=== PATIENT | female | born 1965 | race Caucasian/White ===

== ENCOUNTER 2021-09-25 00:24 | Day surgery (SDC) | payer BC, SELFPAY ==
[2021-09-19 10:52] VITALS: BMI 38.0
--- NOTE | 2021-09-19 11:04 | PC.NURSE ---
Report to the Outpatient Waiting Room, entrance under the green pavilion located off [facility], at time 0630 on date 09/25/21. OR Time: 0830. - You and your visitor will be asked a series of questions to screen for COVID 19 for your protection. - Only one visitor is allowed at this time. - The patient visitor is requested to leave or wait in car when not with patient. - A mask is required within the hospital. Patients may have clear liquids (water, carbonated beverages, clear teas, apple juice) until 3 hours prior to surgery with a maximum of 20 ounces. - No food from midnight until time of surgery Take the following medications with a SIP of water the morning of surgery: BUPROPION, OXYCODONE (IF NEEDED) Medications to discontinue per physician: VITAMINS Date to take last dose: 09/21/21 Please no make-up, nail macedonian, hairspray, perfume, deodorant, or body powder the day of surgery. No jewelry (including any body piercings) or valuables the day of surgery, leave them at home. Please take a shower or bath the night before, or the morning of, surgery with an antibacterial soap. Wear comfortable, loose fitting clothing. - Jewelry must be removed prior to entering the operating room. Rings and piercings that are not removed may be cut off. - The hospital will not accept responsibility for valuables. - Please leave all valuables, including medications, at home the day of surgery. If you are going home after surgery, a licensed truck driver supervisor must drive you home. - NO public transportation without another adult. - We recommend that an adult stay with you for 24 hours following discharge. - We also recommend that you do not drive, make important decision, drink alcoholic beverages, or take any drugs that were not prescribed by your health care provider for at least 24 hours after your discharge time. Follow any additional instructions given to you from your surgeon. If you or anyone in your household have experienced Covid symptoms in the past week, please notify your surgeon or the nurse liaison at the phone number below for possible testing. Telephone instructions given to PT - BISI MATA and asked if any additional questions and then verbalized understanding. Patient advised to call surgeon office or pre surgery nurse liaison [phone] if any additional questions.
[2021-09-25 06:52] VITALS: BP 108/80; PULSE 69; RESP 16; TEMP 36.3; O2SAT 97
[2021-09-25] MEDS: LACTATED RINGERS 1,000 ML 30 ML IV CONT (07:13)
--- NOTE | 2021-09-25 07:26 | PM.IMHP ---
H&P: HPI History of Present Illness Date/Time: 09/25/21 07:26 Chief Complaint: lupus Narrative: Pt is a 56 y/o F presenting for VAD removal. Pt has had multiple ports in R chest over the years for treatment of autoimmune dz. Pt reports recently not getting further infusion type treatments and would like VAD removed. Review of Systems Review of Systems: All systems reviewed & are unremarkable except as noted in HPI and below PMFSH Social History Social History Smoking status: Never smoker Alcohol intake: never Substance use: never Substance use type: does not use Living arrangements: with family Spiritual care concerns: No Meds Home Medications and Allergies Home Medications Medication Instructions Recorded Confirmed Type bupropion HCl 150 mg 24 hr tablet, 450 mg PO QAM 09/19/21 09/19/21 History extended release carisoprodol 350 mg tablet 350 mg PO TID PRN Pain 09/19/21 09/19/21 History hydroxychloroquine 200 mg tablet 400 mg PO DAILY 09/19/21 09/19/21 History (Plaquenil) multivitamin 1 tablet PO DAILY 09/19/21 09/19/21 History oxycodone 10 mg tablet 10 mg PO Q8H PRN Pain 09/19/21 09/19/21 History rimegepant 75 mg disintegrating 75 mg PO EVERY OTHER DAY 09/19/21 09/19/21 History tablet (Nurtec ODT) Allergies Allergy/AdvReac Type Severity Reaction Status Date / Time ciprofloxacin [From Cipro] Allergy Rash Verified 09/19/21 10:48 chlorhexidine AdvReac Redness of Verified 09/19/21 10:48 Skin Exam Const: General: cooperative, comfortable, no acute distress and anxious Neck: Neck: normal visual inspection, full ROM and no lymphadenopathy Chest: Other: R sided VAD - C/D/I Resp: Effort & Inspection: normal respiratory effort Auscultation: clear to auscultation bilaterally Cardio: Rate: regular rate Rhythm: regular rhythm GI: Inspection: normal to inspection Assessment and Plan Assessment and plan (1) Lupus: Code(s): M32.9 - Systemic lupus erythematosus, unspecified Status: Acute Assessment and Plan: VAD no longer being used for treatment, will setup for removal in OR
--- NOTE | 2021-09-25 07:29 | WPDHPUPDATE1 ---
History and Physical Update Update Date/Time: 09/25/21 07:29 History and Physical has been reviewed, including an updated exam of the patient. There are NO changes in the patient's condition. Risks, benefits, and alternatives have been discussed and questions answered. Patient agrees to proceed with procedure.
--- NOTE | 2021-09-25 08:00 | WPDANESEPPF ---
Anes - Initial Pre Proc Eval Procedure: Operation Date: 09/25/21 08:30 Proposed Procedures p Removal [place] Cath - January Donohue MD <Jesus Pappas DO - Last Filed: 09/25/21 08:04> Date/Time: 09/25/21 08:00 <Jesus Pappas DO - Last Filed: 09/25/21 08:04> Surgeon: January Donohue MD <Jesus Pappas DO - Last Filed: 09/25/21 08:04> Pre Op Diagnosis: lupus <Jesus Pappas DO - Last Filed: 09/25/21 08:04> Patient Data Age: 56 Gender: F Height: 1.52 m Weight: 89.6 kg <Jesus Pappas DO - Last Filed: 09/25/21 08:04> Last Vital Signs Temp 36.3 C L 09/25/21 06:52 Pulse 69 09/25/21 06:52 Resp 16 09/25/21 06:52 BP 108/80 09/25/21 06:52 Pulse Ox 97 09/25/21 06:52 O2 Del Method Room Air 09/25/21 06:52 <Jesus Pappas DO - Last Filed: 09/25/21 08:04> Allergies Allergy/AdvReac Type Severity Reaction Status Date / Time ciprofloxacin [From Cipro] Allergy Rash Verified 09/25/21 07:36 chlorhexidine AdvReac Redness of Verified 09/25/21 07:36 Skin <Jesus Pappas DO - Last Filed: 09/25/21 08:04> Home Medications Medication Instructions Recorded Confirmed Type bupropion HCl 150 mg 24 hr tablet, 450 mg PO QAM 09/19/21 09/25/21 History extended release carisoprodol 350 mg tablet 350 mg PO TID PRN Pain 09/19/21 09/25/21 History hydroxychloroquine 200 mg tablet 400 mg PO DAILY 09/19/21 09/25/21 History (Plaquenil) multivitamin 1 tablet PO DAILY 09/19/21 09/25/21 History oxycodone 10 mg tablet 10 mg PO Q8H PRN Pain 09/19/21 09/25/21 History rimegepant 75 mg disintegrating 75 mg PO EVERY OTHER DAY 09/19/21 09/25/21 History tablet (Nurtec ODT) <Jesus Pappas DO - Last Filed: 09/25/21 08:04> Patient hx anesthesia problems: none <Tae Holt MD - Last Filed: 09/25/21 08:11> Family hx anesthesia problems: none <Tae Holt MD - Last Filed: 09/25/21 08:11> Results Review: All pre-operative results and documents have been reviewed as part of the pre-operative evaluation. <Jesus Pappas DO - Last Filed: 09/25/21 08:04> [facility] Past Medical History Medical History: Medical History (Updated 09/25/21 @ 08:03 by Jesus Pappas DO) Anxiety Chronic, continuous use of opioids Depression Sjogrens syndrome SLE (systemic lupus erythematosus) <Jesus Pappas DO - Last Filed: 09/25/21 08:04> Surgical History Surgical History: Surgical History (Updated 09/25/21 @ 08:03 by Jesus Pappas DO) History of appendectomy History of cholecystectomy History of hysterectomy <Jesus Pappas DO - Last Filed: 09/25/21 08:04> Social History Social History: Social History Smoking status: Never smoker Alcohol intake: never Substance use: never Substance use type: does not use Living arrangements: with family Spiritual care concerns: No <Jesus Pappas DO - Last Filed: 09/25/21 08:04> Anes - Eval Final PreProcedure Day of Procedure 09/25/21 08:00 <Jesus Pappas DO - Last Filed: 09/25/21 08:04> Patient weight: obese <Jesus Pappas DO - Last Filed: 09/25/21 08:04> Heart: regular rate and rhythm <Jesus Pappas DO - Last Filed: 09/25/21 08:04> Lungs: clear to auscultation <Jesus Pappas DO - Last Filed: 09/25/21 08:04> Airway: Mallampati scale class II <Jesus Pappas DO - Last Filed: 09/25/21 08:04> Neurological: alert and oriented <Jesus Pappas DO - Last Filed: 09/25/21 08:04> Last oral intake: >/= 8 hours <Jesus Pappas DO - Last Filed: 09/25/21 08:04> ASA classification: III <Jesus Pappas DO - Last Filed: 09/25/21 08:04> Emergent: no <Jesus Pappas DO - Last Filed: 09/25/21 08
[2021-09-25] MEDS: ceFAZolin 2 GM/D5W 50 ML 2 GM/50 ML BAG IVPB (08:18)
[2021-09-25] MEDS: BUPIVACAINE/EPINEPHRINE 0.25% 50 ML VIAL INFILTRATE (08:33)
--- NOTE | 2021-09-25 08:47 | P.OP_ITS ---
Procedure Note - Detailed Date of Procedure 09/25/21 Pre-op Diagnosis lupus Post-op Diagnosis Same Procedure Performed removal R chest VAD Surgeon January Donohue MD Anesthesia MAC and Local Indications 56 y/o F no longer needing infusion treatment for autoimmune disease. Pt had R sided VAD placed about a year ago. Findings R SCV VAD Description of Procedure The patient was taken to the operating room and placed in the supine position. The patient was then prepped and draped in the normal sterile fashion. A time- out was then done to verify the patient's identity, as well as the procedure being performed. I began by localizing the area of the previously placed port in the right chest. After the area was adequately anesthetized, I made an incision through the previous incision to gain access to the port in the subcutaneous tissue. I was then able to identify the port and using dissection with the Bovie cautery, I was able to free the reservoir from the subcutaneous pocket. The reservoir was being held in by 2 sutures and these were subsequently cut. I was then able to remove the reservoir from the pocket. I then removed the catheter from the right subclavian vein in full. I then held pressure at the level the right subclavian vein for approximately 5 minutes. Hemostasis was noted and I irrigated the pocket. I then closed the subcutaneous tissue with 3-0 Vicryl suture. The skin was closed with 4-0 Monocryl subcuticular suture. Dermabond was placed on the wound. The patient tolerated the procedure well and was alert and awake in the operating room postoperative. The patient will be sent to the recovery room in stable condition. Estimated Blood Loss 5 Drains No Packing No Pathology None sent Complications No immediate complications Condition Stable Disposition PACU [facility] Billing Surgery - Charge Forward: Surgery Billing
[2021-09-25 08:50] VITALS: BP 115/67; PULSE 64; RESP 16
[2021-09-25 09:15] VITALS: BP 111/66; PULSE 66; RESP 12
[2021-09-25 09:45] VITALS: BP 113/93; PULSE 66; RESP 16
== END 2021-09-25 10:05 | disposition home or self-care (01) ==
PROVIDERS: PCP Internal Medicine; Visit Provider Surgery
PROC: (CPT 36589; principal; 2021-09-25 08:30)
DX: Z45.2 Encounter for adjustment and management of vascular access device (principal); M32.9 Systemic lupus erythematosus, unspecified; M35.00 Sjogren syndrome, unspecified; F41.9 Anxiety disorder, unspecified; F32.A Depression, unspecified; Z79.891 Long term (current) use of opiate analgesic; E66.9 Obesity, unspecified; Z68.38 Body mass index [BMI] 38.0-38.9, adult
CPT/HCPCS: 36590; J0690; J1100; J2250; J2405; J2704; J3010; J7120

== ENCOUNTER 2022-04-02 14:27 | Outpatient (CLI) | payer BC, SELFPAY ==
--- NOTE | ~2022-04-02 | CT_ITS ---
EXAMINATION: CT abdomen pelvis wo con DATE: 04/02/2022 15:06 INDICATION: Abdominal pain and tenderness, possible incisional hernia TECHNIQUE: Computed tomography (CT) of the abdomen and pelvis was performed without intravenous contr ast. The dose-length product (DLP) was 1126.73 mGy-cm. Automated exposure control and iterative recon struction technique were employed. COMPARISON: None FINDINGS: Minimal dependent atelectasis is present in the lung bases. The heart size is normal. The g allbladder is surgically absent. There is mild enlargement of the common bile duct and central intrah epatic ducts which is likely due to post cholecystectomy state. The liver, spleen, pancreas, and adre nal glands are normal. There is a 1.3 cm soft tissue attenuation lesion of the right mid kidney. The left kidney is unremarkable. No pathologically enlarged abdominal or pelvic lymph nodes are identifie d. No free intraperitoneal gas or evidence of bowel obstruction. There is a surgical anastomosis of t he rectosigmoid colon. A moderate volume of colonic stool is present. There is a periumbilical hernia containing a short segment of nonobstructed small bowel. There is mild lumbar spondylosis. IMPRESSION: 1. Periumbilical hernia containing a short segment of nonobstructed small bowel. 2. Indeterminate soft tissue attenuation lesion of the right mid kidney. Further evaluation by MRI or CT without and with contrast is recommended. Reviewed, dictated and finalized at location B. [facility] IMPRESSION: 1. Periumbilical hernia containing a short segment of nonobstructed small bowel . 2. Indeterminate soft tissue attenuation lesion of the right mid kidney. Furthe r evaluation by MRI or CT without and with contrast is recommended.
== END 2022-04-02 14:28 | disposition home or self-care (01) ==
PROVIDERS: PCP Internal Medicine; Visit Provider Surgery
DX: K43.2 Incisional hernia without obstruction or gangrene (principal); K42.9 Umbilical hernia without obstruction or gangrene
CPT/HCPCS: 74176

== ENCOUNTER 2022-04-12 14:02 | Outpatient (CLI) | payer BC, SELFPAY ==
--- NOTE | ~2022-04-12 | CT_ITS ---
EXAMINATION: CT abdomen pelvis w con DATE: 04/12/2022 14:33 INDICATION: Right lower quadrant abdominal pain. Right groin pain. TECHNIQUE: Computed tomography (CT) of the abdomen and pelvis was performed with 100 mL Omnipaque 350 intravenous contrast. Automated exposure control and iterative reconstruction technique were employe d. The dose-length product was 1119.51 mGy-cm. COMPARISON: CT abdomen and pelvis 04/02/2022 FINDINGS: The visualized portions of the lung bases are clear without pneumonia or pleural effusion. The heart size is normal. No pericardial effusion. There are changes of cholecystectomy. The spleen, pancreas, adrenal glands, and left kidney are normal. There is a 14 mm hemorrhagic cyst in right kidn ey. There is an anastomosis in the sigmoid colon. There is a periumbilical ventral hernia containing a loop of nonobstructed small bowel. There are no dilated loops of bowel. The appendix is not visuali zed. There are no pathologically enlarged lymph nodes. There is no free intraperitoneal fluid. There is moderate lumbar spondylosis. IMPRESSION: 1. Periumbilical ventral hernia containing a loop of nonobstructed small bowel. Reviewed, dictated and finalized at location A. R REPAIRER
== END 2022-04-12 14:03 | disposition home or self-care (01) ==
PROVIDERS: PCP Internal Medicine; Visit Provider Surgery
DX: R10.31 Right lower quadrant pain (principal); K43.9 Ventral hernia without obstruction or gangrene
CPT/HCPCS: 74177; Q9967

== ENCOUNTER 2022-04-23 11:24 | Outpatient (CLI) | payer BC, SELFPAY | END 2022-04-23 11:25 | disposition home or self-care (01) | LOC: ANHSURGERY 11:28 | PROVIDERS: PCP Internal Medicine; Visit Provider Surgery | DX: K43.2 Incisional hernia without obstruction or gangrene (principal); Z01.818 Encounter for other preprocedural examination | CPT/HCPCS: 36415; 86850; 86900; 86901 ==

== ENCOUNTER 2022-04-28 15:53 | Observation (INO) | payer BC, SELFPAY ==
--- NOTE | 2022-04-19 14:32 | PC.NURSE ---
Report to the Outpatient Waiting Room, entrance under the green pavilion located off [facility], at time 0830 on date _04/27/22. Planned Procedure Time: _1030_. Time changes happen often and if your time is changed the preop area will call you the afternoon before. - You and your visitor will be asked to self-screen and do not enter if you have any COVID symptoms. - Only one visitor is requested with a max of two and NO children visitors are allowed at this time. - The patient visitor may be requested to leave or wait in car when not with patient due to distancing restrictions. - A mask is optional within the hospital at this time. Patients may have clear liquids (water, carbonated beverages, clear teas, apple juice) until 3 hours prior to surgery with a maximum of 20 ounces. - No food from midnight until time of surgery - Infants may have breast milk until 4 hours before surgery, infant formula 6 hours prior to surgery. - Children will be allowed to drink immediately following surgery. If applicable, please bring a bottle or sippy cup to assist with drinking. Juice, water, soda, and popsicles are readily available. For infants on formula, please bring formula the day of surgery. Pacifiers are allowed. Take the following medications with a SIP of water the morning of surgery: BUPROPION, CARISOPRODOL AND OXYCODONE IF NEEDED DO NOT STOP ANY OF YOUR OTHER PRESCRIPTION MEDICATIONS PRIOR TO SURGERY ?EXCEPT THE FOLLOWING Medications to discontinue per physician ___VITAMINS AND SUPPLIMENTS Date to take last dose___04/24/22 Please no make-up, nail ukrainian, hairspray, perfume, deodorant, or body powder the day of surgery. No jewelry (including any body piercings) or valuables the day of surgery, leave them at home. Please take a shower or bath the night before, or the morning of, surgery with an antibacterial soap. Wear comfortable, loose fitting clothing. Children are encouraged to wear pajamas. - Jewelry must be removed prior to entering the operating room. Rings and piercings that are not removed may be cut off. - The hospital will not accept responsibility for valuables. - Please leave all valuables, including medications, at home the day of surgery. If you are going home after surgery, a licensed after school driver must drive you home. - NO public transportation without another adult if you receive anesthesia. - We recommend that an adult stay with you for 24 hours following discharge. - We also recommend that you do not drive, make important decision, drink alcoholic beverages, or take any drugs that were not prescribed by your health care provider for at least 24 hours after your discharge time. For Pediatric surgeries, we recommend two adults accompany the child home. Follow any additional instructions given to you from your surgeon. If you or anyone in your household have experienced Covid symptoms in the past week, please notify your surgeon or the nurse liaison at the phone number below for possible testing. Telephone instructions given to _PATIENT and asked if any additional questions and then verbalized understanding. Patient advised to call surgeon office or pre surgery nurse liaison [phone] if any additional questions.
[2022-04-27] VITALS (17 sets, daily range): BP systolic 84–147; BP diastolic 54–93; PULSE 55–80; RESP 12–16; TEMP 36.3–36.6; O2SAT 93–99
[2022-04-27] MEDS: LACTATED RINGERS 1,000 ML 30 ML IV CONT ×3 (06:31→11:32)
[2022-04-27] MEDS: KETOROLAC 15 MG/ML VIAL (*BKC) IV PUSH (06:31)
[2022-04-27] MEDS: ACETAMINOPHEN 500 MG TABLET 1000 MG PO (06:31)
--- NOTE | 2022-04-27 07:14 | WPDANESEPPF ---
Anes - Initial Pre Proc Eval Procedure: Operation Date: 04/27/22 07:30 Proposed Procedures p Robotic Assisted Laparoscopic Incisional Hernia Repair with Mesh - January Donohue MD Date/Time: 04/27/22 07:14 Surgeon: January Donohue MD Pre Op Diagnosis: Incisional Hernia Patient Data Age: 56 Gender: F Height: Weight: 92 kg Last Vital Signs Temp 97.3 F L 04/27/22 06:25 Pulse 75 04/27/22 06:25 Resp 16 04/27/22 06:25 BP 125/77 04/27/22 06:25 Pulse Ox 99 04/27/22 06:25 O2 Del Method Room Air 04/27/22 06:25 Allergies Allergy/AdvReac Type Severity Reaction Status Date / Time ciprofloxacin [From Cipro] Allergy Rash Verified 04/27/22 06:43 chlorhexidine AdvReac Redness of Verified 04/27/22 06:43 Skin Home Medications Medication Instructions Recorded Confirmed Type bupropion HCl 150 mg 24 hr tablet, 450 mg PO QAM 09/19/21 04/19/22 History extended release carisoprodol 350 mg tablet 350 mg PO TID PRN Pain 09/19/21 04/19/22 History hydroxychloroquine 200 mg tablet 400 mg PO DAILY 09/19/21 04/19/22 History (Plaquenil) multivitamin 1 tablet PO DAILY 09/19/21 04/19/22 History oxycodone 10 mg tablet 10 mg PO Q8H PRN Pain 09/19/21 04/19/22 History rimegepant 75 mg disintegrating 75 mg PO EVERY OTHER DAY 09/19/21 04/19/22 History tablet (Nurtec ODT) zolpidem 10 mg tablet 10 mg PO QHS PRN SLEEPLESSNESS 03/28/22 04/19/22 History B Complex-Vitamin B12 1 tab-cap PO DAILY 04/19/22 04/19/22 History Vital Protien/ Collegan Suppliment 1 PO DAILY 04/19/22 History cholecalciferol (vitamin D3) 25 25 mcg PO DAILY 04/19/22 04/19/22 History mcg (1,000 unit) tablet (Vitamin D3) Patient hx anesthesia problems: none Family hx anesthesia problems: none Results Review: All pre-operative results and documents have been reviewed as part of the pre-operative evaluation. PMFSH Past Medical History Medical History (Updated 03/28/22 @ 10:47 by Clarissa Shaffer [facility]) Anxiety Chronic, continuous use of opioids Depression History of cervical cancer Sjogrens syndrome SLE (systemic lupus erythematosus) Surgical History Surgical History (Updated 03/28/22 @ 10:03 by Avril Pedraza) History of appendectomy History of cholecystectomy History of hysterectomy History of removal of Port-a-Cath S/P colon resection S/P hernia repair S/P oophorectomy S/P rotator cuff repair Family History Family History Father Malignant neoplasm of prostate Mother CHF (congestive heart failure) Multiple myeloma Emphysema lung Sibling CHF (congestive heart failure) Aortic aneurysm Unknown Diabetes mellitus Heart disease Hypertension Kidney disease Cancer Social History Social History Smoking status: Never smoker Alcohol intake: former Substance use: never Substance use type: does not use Living arrangements: with family Spiritual care concerns: No Anes - Eval Final PreProcedure Day of Procedure 04/27/22 07:14 Patient weight: obese Heart: regular rate and rhythm Lungs: clear to auscultation Airway: Mallampati scale class III Neurological: alert and oriented Last oral intake: >/= 8 hours ASA classification: III Emergent: no Anesthetic plan: proceed Anesthesia type and monitoring: general ETT and standard monitoring Results Review: All pre-operative results and documents have been reviewed as part of the pre-operative evaluation. Informed Consent: The patient's anesthetic plan and its attendant risks and benefits were discussed with the patient/family/POA. Questions were solicited and answers provided to the satisfaction of the patient/family/POA.
--- NOTE | 2022-04-27 07:17 | WPDHPUPDATE1 ---
History and Physical Update Update Date/Time: 04/27/22 07:17 History and Physical has been reviewed, including an updated exam of the patient. There are NO changes in the patient's condition. Risks, benefits, and alternatives have been discussed and questions answered. Patient agrees to proceed with procedure. will setup for robotic assisted repair of recurrent incisional hernia
[2022-04-27] MEDS: ceFAZolin 2 GM/D5W 50 ML 2 GM/50 ML BAG IVPB (07:24)
[2022-04-27] MEDS: BUPIVACAINE/EPINEPHRINE 0.25% 50 ML VIAL 30 ML INFILTRATE (07:57)
--- NOTE | 2022-04-27 10:39 | W.PM.PROC2 ---
Procedure Note - Detailed Date of Procedure 04/27/22 Pre-op Diagnosis recurrent, incarcerated incisional hernia Post-op Diagnosis Same Procedure Performed Robotic assisted repair recurrent incarcerated incisional hernia with mesh, extensive lysis of adhesions of approximately 90 minutes Surgeon January Donohue MD Anesthesia General Indications 56-year-old female with history of multiple abdominal surgeries presents with recurrent periumbilical incisional hernia. Workup, including CT scan, significant for incarcerated incisional hernia with loop of noted small intestine. Findings permanent suture noted from previous repair, extensive adhesions to the anterior abdominal wall including multiple loops of small bowel and colon, incarcerated small intestine and supraumbilical incisional hernia defect measuring approximately 4 cm Description of Procedure The patient was taken the operating room placed in the supine position. After adequate induction of general anesthesia, the patient was prepped and draped in normal sterile fashion. A time-out was then done to verify the patient's identity as well as the procedure being performed. I began by making a 5 mm incision in the left upper quadrant. Through this, a Veress needle was placed into the peritoneal cavity and CO2 gas was insufflated. After adequate pneumoperitoneum was achieved, a 5 mm trocar was placed through this incision. I then placed the laparoscope through this trocar site. It was noted at this point that the patient had a dense amount of adhesions to the anterior abdominal wall and I would be unable to place any further ports in the left abdomen without doing an extensive lysis of adhesions. I was able to see an area that was clear in the right upper quadrant and a 5 mm port was placed under direct visualization. Through these 2 trocar sites, was able to clear a further area in the right mid abdomen to allow placement of an additional 5 mm port. I then did an extensive lysis of adhesions to free up the anterior abdominal wall. This does done both sharply with the laparoscopic scissors and cautery, and also bluntly. There was noted to be extensive amount of small intestine as well as colon to the anterior abdominal wall. I was able to identify the area of the hernia which was noted to be incarcerated with a loop of small bowel. Once I was able to get the left abdominal wall clear, I was able to place 2 additional 8 mm ports in the left mid and left lower abdomen. This lysis of adhesions took approximately 90 minutes. I then moved the camera to the lower port and replaced the 5 mm port with a 12 mm airport. The robot was then docked to the 3 port sites. I then went to the robotic console. I began by identifying the hernia. A moderate-sized incarcerated hernia was noted in the periumbilical region. Using graspers, I was able to reduce this hernia. The hernia was noted to contain a loop of small intestine that did not look to be obstructed. Once reduced, I also reduced and dissected out the hernia sac. I then closed the approximately 4 cm defect with 0 strata fix suture. I then placed a [address] mesh into the abdominal cavity. The positional stitch was placed in the middle of the mesh and brought up centering the mesh over the defect. Once this was done, I used 2 0 V lock suture x 2 to circumferentially suture the mesh to the abdominal. Once the mesh was completely sutured in, I was happy with our tension-free repair. The mesh was noted to have good overlap of the defect. I then removed the positioning device. At this point, the robot was undocked and all ports were removed. I then closed the 12 mm port site with an 0 Vicryl [id number] suture at the fascial level. All port sites were then closed with 4 O Monocryl subcuticular suture. The patient tolerated the procedure well, is extubated in the operating room postoperative, and will be transferred to the recovery room in
[2022-04-27] MEDS: ONDANSETRON INJ 4 MG/2 ML VIAL IV PUSH ×2 (11:04→21:21)
[2022-04-27] MEDS: fentaNYL CITRATE INJ (*CRX) 100 MCG/2 ML VIAL 25 MCG IV PUSH ×7 (11:05→13:42)
[2022-04-27] MEDS: SCOPOLAMINE 1.5 MG PATCH TRANSDERM (12:30)
[2022-04-27] MEDS: diphenhydrAMINE HCl INJ 50 MG/ML VIAL 25 MG IV PUSH ×2 (12:30→21:28)
[2022-04-27] MEDS: oxyCODONE HCL (*CRX) 5 MG TAB IR PO (12:53)
[2022-04-27] MEDS: KETOROLAC 30 MG/ML VIAL (*BKC) IV PUSH (14:02)
[2022-04-27] MEDS: MORPHINE SULFATE (*CRX) 2 MG/ML INJ IV PUSH ×2 (15:09→17:05)
--- NOTE | 2022-04-27 17:00 | ADMGEN ---
This patient, Lea Martin, was admitted to 3 [facility] Surg Room 322-01. Patient/family oriented to hospital policies and general routines including ID bracelet, bed and alarms, visiting hours, pain management, procedures, bathroom and other care routines, personal items, smoking policy, room service/diet, and visiting hours. Information on how to activate the Rapid Response Team has been discussed. Patient/Family are encouraged to report perceived risks to care and to ask questions if they do not understand what they are told or what they should do.
[2022-04-27] MEDS: MORPHINE SULFATE (*CRX) 4 MG/ML INJ IV PUSH (19:06)
[2022-04-27] MEDS: ZOLPIDEM TARTRATE (*CRX) 5 MG TABLET 10 MG PO (21:21)
[2022-04-27] MEDS: HYDROcodone/acetaminophen (*CRX) 5-325 MG TABLET 1 TAB PO (21:21)
[2022-04-28] VITALS (7 sets, daily range): BP systolic 99–126; BP diastolic 51–73; PULSE 56–91; RESP 12–18; TEMP 35.7–36.7; O2SAT 96–100
[2022-04-28] MEDS: MORPHINE SULFATE (*CRX) 4 MG/ML INJ IV PUSH ×2 (00:33→03:56)
[2022-04-28] MEDS: ONDANSETRON INJ 4 MG/2 ML VIAL IV PUSH ×2 (03:56→07:44)
[2022-04-28] MEDS: HYDROcodone/acetaminophen (*CRX) 5-325 MG TABLET 1 TAB PO (06:12)
[2022-04-28 06:27] LABS: Hematocrit 37.3 % (37.0-47.0); Hemoglobin 12.2 g/dL (12.0-15.0); Mean Corpuscular HGB Conc 32.7 g/dl (32-36); Mean Corpuscular Hemoglobin 31.2 pg (26-34); Mean Corpuscular Volume 95.4 fl (80-100); Mean Platelet Volume 10.6 fl (7.4-10.4); Platelet Count Result 216 k/mm3 (150-375); Red Blood Count 3.91 M/mm3 (4.2-5.4); White Blood Count 5.2 K/mm3 (4.5-10.0)
[2022-04-28 06:47] LABS: Anion Gap 6 mmol/L (8-16); Blood Urea Nitrogen 10 mg/dL (7-17); Calcium 8.6 mg/dL (8.4-10.2); Carbon Dioxide 31 mmol/L (22-30); Chloride 107 mmol/L (98-107); Estimated Glomerular Filt Rate > 60; Glucose 110 mg/dL (65-110); Potassium 3.6 mmol/L (3.4-5.0); Sodium 144 mmol/L (137-145)
[2022-04-28] MEDS: HYDROXYCHLOROQUINE SULFATE 200 MG TABLET 400 MG PO (08:19)
[2022-04-28] MEDS: VITAMIN B COMPLEX CAPSULE 1 CAP PO (08:19)
[2022-04-28] MEDS: buPROPion HCL XL (24 HR) 150 MG TABCR 450 MG PO (08:19)
[2022-04-28] MEDS: ENOXAPARIN 40 MG/0.4 ML SYRINGE SUB-Q (08:20)
[2022-04-28] MEDS: CHOLECALCIFEROL 1,000 UNITS TABLET 1000 UNITS PO (08:20)
[2022-04-28] MEDS: MULTIVITAMINS THERAPEUTIC TAB (*BKC) 1 TABLET PO (08:20)
[2022-04-28] MEDS: MORPHINE SULFATE (*CRX) 2 MG/ML INJ IV PUSH (08:34)
--- NOTE | 2022-04-28 11:49 | PM.PNGS ---
Progress Note: A&P Assessment and Plan (1) Incisional hernia: Qualifiers: Obstruction and gangrene presence: without obstruction or gangrene Qualified Code(s): K43.2 - Incisional hernia without obstruction or gangrene Code(s): K43.2 - Incisional hernia without obstruction or gangrene Status: Acute Assessment and Plan: Status post robotic assisted laparoscopic ventral hernia repair with mesh. Postoperative day 1. Her postoperative pain is only marginally controlled this morning. We will go ahead and change her pain medication regimen to 2 tablets of the [place] 5/325 every 6hours as needed and supplement this with some scheduled Toradol IV. Will go ahead and stop the IV morphine. Encouraged her to get up and ambulate in a halls and sit up in a chair. Will also get a incentive spirometer to the bedside. Hopefully she will have better pain control tomorrow and she can be discharged hopefully soon. Because of her mild nausea this morning will only advanced to full liquids today. Subjective Subjective Date/Time Seen: 04/28/22 11:49 Interval history: Patient is Postop day 1 after a robotic assisted laparoscopic hernia repair with mesh. She was admitted postoperatively for postoperative pain management. She has been getting Curtiss 5mg / 325mg every 4hours with some backup IV morphine. Her pain is still rated at a 6 or 7 on this regimen. She has been able to get up and walk to the bathroom and urinate without problems. She is passing flatus. No bowel movement. Labs are normal this morning. She is a little nauseated and did not tolerate too many liquids this morning. Review of Systems Review of Systems: The remainder of the review of systems to include constitutional, HEENT, cardiovascular, respiratory, GI, , integumentary, musculoskeletal, endocrine, immunologic, hematologic, psychiatric, and neurologic are all negative except for which is mentioned above in the HPI. Exam Narrative: The abdomen is soft and nondistended. Abdominal binder is in place. Port site incisions were healing appropriately without redness or drainage. No bruising. She has expected tenderness around the port sites and the central abdominal wall hernia repair. No concerning peritoneal signs are noted. Objective Data Vital Signs Vital Signs: Vital Signs - 24 hr 04/27/22 11:55 04/27/22 12:00 04/27/22 12:35 Temperature Pulse Rate 63 80 60 Respiratory Rate 13 16 12 Blood Pressure 101/69 108/71 105/61 Pulse Oximetry 93 Oxygen Delivery Room Air Room Air Room Air 04/27/22 13:05 04/27/22 13:35 04/27/22 14:05 Temperature Pulse Rate 59 L 74 64 Respiratory Rate 12 16 16 Blood Pressure 107/63 110/93 H 147/67 H Pulse Oximetry Oxygen Delivery Room Air Room Air Room Air 04/27/22 14:35 04/27/22 15:05 04/27/22 15:35 Temperature Pulse Rate 55 L 69 64 Respiratory Rate 16 16 16 Blood Pressure 110/72 105/86 127/82 Pulse Oximetry 98 Oxygen Delivery Room Air Room Air Room Air 04/27/22 16:15 04/27/22 21:29 04/28/22 00:21 Temperature 36.6 C 36.3 C L 36.2 C L Pulse Rate 60 63 70 Respiratory Rate 16 14 16 Blood Pressure 119/83 102/67 115/63 Pulse Oximetry 98 96 97 Oxygen Delivery 04/28/22 06:00 04/28/22 09:00 04/28/22 10:00 Temperature 36.5 C 35.7 C L Pulse Rate 62 91 56 L Respiratory Rate 18 16 16 Blood Pressure 99/51 L 111/73 Pulse Oximetry 96 97 100 Oxygen Delivery Room Air Intake/Output Intake/Output: Intake & Output 04/25/22 04/26/22 04/27/22 04/28/22 23:59 23:59 23:59 23:59 Intake Total 490 300 Output Total 100 Balance 490 200 Meds/Results Medications: Active Medications Generic Name Dose Route Start Last Admin Trade Name Freq PRN Reason Stop Dose Admin Hydrocodone Bitart/Acetaminophen 1 tab 04/27/22 16:15 04/28/22 06:12 Hydrocodone/Acetaminophen (*Crx) 5-325 Mg Tablet PO 1 tab Q4H PRN Administration Pain Rated 4-6 Buprop
[2022-04-28] MEDS: KETOROLAC 30 MG/ML VIAL (*BKC) 15 MG IV PUSH (12:25)
[2022-04-28] MEDS: PANTOPRAZOLE 40 MG TABLET PO (12:32)
[2022-04-28] MEDS: HYDROcodone/acetaminophen (*CRX) 5-325 MG TABLET 2 TAB PO ×2 (14:52→21:16)
[2022-04-28] MEDS: KETOROLAC 15 MG/ML VIAL (*BKC) IV PUSH (17:12)
[2022-04-29] VITALS: BP 116/62; PULSE 62; RESP 20; TEMP 36.8; O2SAT 100
[2022-04-29] MEDS: KETOROLAC 15 MG/ML VIAL (*BKC) IV PUSH ×5 (00:09→23:14)
--- NOTE | 2022-04-29 03:06 | PC.NURSE ---
Daylight Savings Time For Daylight Savings Time Ending in the Fall - Clocks are moved back. For Daylight Savings Time Beginning in the Spring - Clocks are moved ahead. For [facility], the time of change occurs at 0200 hrs. Time is taken from the seismograph observer. This entry on the patient's chart recognizes the change in time reflected during documentation. Example: 2 entries for vital signs may be charted for 0200 hrs.
[2022-04-29 04:00] VITALS: BP 103/58; PULSE 67; RESP 20; TEMP 36.8; O2SAT 98
[2022-04-29] MEDS: HYDROcodone/acetaminophen (*CRX) 5-325 MG TABLET 2 TAB PO ×3 (04:08→18:49)
[2022-04-29 08:00] VITALS: BP 107/56; PULSE 58; RESP 14; TEMP 36.4; O2SAT 97
[2022-04-29] MEDS: MULTIVITAMINS THERAPEUTIC TAB (*BKC) 1 TABLET PO (08:00)
[2022-04-29] MEDS: PANTOPRAZOLE 40 MG TABLET PO (08:00)
[2022-04-29] MEDS: ENOXAPARIN 40 MG/0.4 ML SYRINGE SUB-Q (08:00)
[2022-04-29] MEDS: CHOLECALCIFEROL 1,000 UNITS TABLET 1000 UNITS PO (08:00)
[2022-04-29] MEDS: HYDROXYCHLOROQUINE SULFATE 200 MG TABLET 400 MG PO (08:00)
[2022-04-29] MEDS: VITAMIN B COMPLEX CAPSULE 1 CAP PO (08:00)
[2022-04-29] MEDS: buPROPion HCL XL (24 HR) 150 MG TABCR 450 MG PO (08:01)
[2022-04-29] MEDS: HYDROcodone/acetaminophen (*CRX) 5-325 MG TABLET 1 TAB PO (09:51)
--- NOTE | 2022-04-29 10:30 | PM.PNGS ---
Progress Note: A&P Assessment and Plan (1) Incisional hernia: Qualifiers: Obstruction and gangrene presence: without obstruction or gangrene Qualified Code(s): K43.2 - Incisional hernia without obstruction or gangrene Code(s): K43.2 - Incisional hernia without obstruction or gangrene Status: Acute Assessment and Plan: The patient's postop pain has improved but is still significant enough this morning to retain her in the hospital for now. We will go ahead and advance her diet to a regular diet. I encouraged her to go ahead and take 2 [place] every 6hours as needed for her pain. She is afraid she will become constipated and I told her that we would give her some MiraLax to help with the constipation. She continues get Toradol 15mg IV every 6hours. We will see how she does today and she feels better this afternoon and feels that she can tolerate just taking oral pain medications at home that she can be discharged later today versus hopefully tomorrow. Subjective Subjective Date/Time Seen: 04/29/22 10:30 Interval history: Patient's incisional pain is better today but still requiring scheduled [place] and Toradol IV. She has been able to tolerate small amounts of full liquids. No nausea or emesis. No fever. Has been able to ambulate to the bathroom without difficulty. She has not had a bowel movement for over 3 days. Exam Narrative: Abdomen soft and nondistended. Port site incisions are healing well without redness or drainage. She has expected [id number] tenderness to palpation around the incisions and the central abdomen where she had her hernia repair. No peritoneal signs are noted. Objective Data Vital Signs Vital Signs: Vital Signs - 24 hr 04/28/22 10:00 04/28/22 14:00 04/28/22 18:00 Temperature 35.7 C L 35.9 C L 35.8 C L Pulse Rate 56 L 59 L 59 L Respiratory Rate 16 12 16 Blood Pressure 111/73 123/64 116/56 L Pulse Oximetry 100 98 98 Oxygen Delivery 04/28/22 20:00 04/29/22 00:00 04/29/22 01:00 Temperature 36.7 C 36.8 C Pulse Rate 60 62 Respiratory Rate 18 20 Blood Pressure 126/58 L 116/62 Pulse Oximetry 98 100 Oxygen Delivery Room Air 04/29/22 04:00 04/29/22 08:00 Temperature 36.8 C 36.4 C Pulse Rate 67 58 L Respiratory Rate 20 14 Blood Pressure 103/58 L 107/56 L Pulse Oximetry 98 97 Oxygen Delivery Intake/Output Intake/Output: Intake & Output 04/26/22 04/27/22 04/28/22 04/30/22 23:59 23:59 23:59 00:59 Intake Total 490 300 Output Total 100 Balance 490 200 Meds/Results Medications: Active Medications Generic Name Dose Route Start Last Admin Trade Name Freq PRN Reason Stop Dose Admin Hydrocodone Bitart/Acetaminophen 1 tab 04/27/22 16:15 04/29/22 09:51 Hydrocodone/Acetaminophen (*Crx) 5-325 Mg Tablet PO 1 tab Q4H PRN Administration Pain Rated 4-6 Hydrocodone Bitart/Acetaminophen 2 tab 04/28/22 11:54 04/29/22 04:08 Hydrocodone/Acetaminophen (*Crx) 5-325 Mg Tablet PO 2 tab Q6H PRN Administration Pain Rated 4-6 Bupropion HCl 450 mg 04/28/22 09:00 04/29/22 08:01 Bupropion Hcl Xl (24 Hr) 150 Mg Tabcr PO 450 mg QAM CHARY Administration Carisoprodol 350 mg 04/27/22 16:15 Carisoprodol (*Crx) 350 Mg Tablet PO TID PRN Pain Diphenhydramine HCl 25 mg 04/27/22 16:15 04/27/22 21:28 Diphenhydramine Hcl Inj 50 Mg/Ml Vial IV PUSH 25 mg Q6H PRN Administration Itching Enoxaparin Sodium 40 mg 04/28/22 09:00 04/29/22 08:00 Enoxaparin 40 Mg/0.4 Ml Syringe SUB-Q 40 mg DAILY CHARY Administration Hydroxychloroquine Sulfate 400 mg 04/28/22 09:00 04/29/22 08:00 Hydroxychloroquine Sulfate 200 Mg Tablet PO 400 mg DAILY [facility] Administration Ketorolac Tromethamine 15 mg 04/28/22 18:00 04/29/22 05:05 Ketorolac 15 Mg/Ml Vial (*Bkc) IV PUSH 15 mg Q6HR CHARY Administration Miscellaneous Information 1 each 04/27/22 16:35 Nurtec Odt Nonfor
[2022-04-29] MEDS: polyethylene glycoL 3350 17 GM POWD.PACK PO (11:03)
[2022-04-29 12:00] VITALS: BP 124/70; PULSE 62; RESP 16; TEMP 36.3; O2SAT 95
[2022-04-29] MEDS: ONDANSETRON INJ 4 MG/2 ML VIAL IV PUSH ×2 (12:51→17:11)
[2022-04-29 16:00] VITALS: BP 115/71; PULSE 56; RESP 16; TEMP 37.2; O2SAT 97
[2022-04-29 20:00] VITALS: BP 117/57; PULSE 56; RESP 18; TEMP 36.1; O2SAT 97
[2022-04-30] VITALS: BP 120/64; PULSE 62; RESP 18; TEMP 36.2; O2SAT 97
[2022-04-30] MEDS: HYDROcodone/acetaminophen (*CRX) 5-325 MG TABLET 2 TAB PO ×2 (02:10→09:40)
[2022-04-30 04:00] VITALS: BP 109/65; PULSE 52; RESP 16; TEMP 35.8; O2SAT 97
[2022-04-30] MEDS: KETOROLAC 15 MG/ML VIAL (*BKC) IV PUSH ×2 (05:01→11:07)
[2022-04-30 08:00] VITALS: BP 127/77; PULSE 53; RESP 16; TEMP 36; O2SAT 93
[2022-04-30] MEDS: polyethylene glycoL 3350 17 GM POWD.PACK PO (08:00)
[2022-04-30] MEDS: ENOXAPARIN 40 MG/0.4 ML SYRINGE SUB-Q (08:00)
[2022-04-30] MEDS: VITAMIN B COMPLEX CAPSULE 1 CAP PO (08:02)
[2022-04-30] MEDS: MULTIVITAMINS THERAPEUTIC TAB (*BKC) 1 TABLET PO (08:02)
[2022-04-30] MEDS: HYDROXYCHLOROQUINE SULFATE 200 MG TABLET 400 MG PO (08:03)
[2022-04-30] MEDS: CHOLECALCIFEROL 1,000 UNITS TABLET 1000 UNITS PO (08:03)
[2022-04-30] MEDS: buPROPion HCL XL (24 HR) 150 MG TABCR 450 MG PO (08:03)
[2022-04-30] MEDS: PANTOPRAZOLE 40 MG TABLET PO (08:03)
--- NOTE | 2022-04-30 10:33 | PM.PNGS ---
Progress Note: A&P Assessment and Plan (1) Incisional hernia: Qualifiers: Obstruction and gangrene presence: without obstruction or gangrene Qualified Code(s): K43.2 - Incisional hernia without obstruction or gangrene Code(s): K43.2 - Incisional hernia without obstruction or gangrene Status: Acute Assessment and Plan: better today but still c significant pain c movt, will move towards all po analgesia, encourage OOB/IS, home if pain is controlled c po analgesia Subjective Subjective Date/Time Seen: 04/30/22 10:33 feels better but still c incisional soreness hitesh c movt, nausea improved and was able to naima diet this am Review of Systems Review of Systems: All systems reviewed & are unremarkable except as noted in HPI and below Exam Const: General: cooperative, comfortable and no acute distress Resp: Auscultation: clear to auscultation bilaterally Cardio: Rate: regular rate Rhythm: regular rhythm GI: Inspection: normal to inspection, distended and incision GI Palp: Yes abdominal tenderness, Yes Soft to palpation, Yes Tenderness to palpation present (GI), No Guarding due to palpation present (GI) and No Rigid due to palpation Objective Data Vital Signs Vital Signs: Vital Signs - 24 hr 04/29/22 12:00 04/29/22 16:00 04/29/22 20:00 Temperature 36.3 C L 37.2 C 36.1 C L Pulse Rate 62 56 L 56 L Respiratory Rate 16 16 18 Blood Pressure 124/70 115/71 117/57 L Pulse Oximetry 95 97 97 Oxygen Delivery 04/29/22 20:00 04/30/22 00:00 04/30/22 04:00 Temperature 36.2 C L 35.8 C L Pulse Rate 62 52 L Respiratory Rate 18 16 Blood Pressure 120/64 109/65 Pulse Oximetry 97 97 Oxygen Delivery Room Air 04/30/22 08:00 Temperature 36.0 C L Pulse Rate 53 L Respiratory Rate 16 Blood Pressure 127/77 Pulse Oximetry 93 Oxygen Delivery Intake/Output Intake/Output: Intake & Output 04/27/22 04/28/22 04/29/22 04/30/22 22:59 22:59 23:59 23:59 Intake Total 400 Output Total Balance 400 Meds/Results Medications: Active Medications Generic Name Dose Route Start Last Admin Trade Name Freq PRN Reason Stop Dose Admin Hydrocodone Bitart/Acetaminophen 1 tab 04/27/22 16:15 04/29/22 09:51 Hydrocodone/Acetaminophen (*Crx) 5-325 Mg Tablet PO 1 tab Q4H PRN Administration Pain Rated 4-6 Hydrocodone Bitart/Acetaminophen 2 tab 04/28/22 11:54 04/30/22 09:40 Hydrocodone/Acetaminophen (*Crx) 5-325 Mg Tablet PO 2 tab Q6H PRN Administration Pain Rated 4-6 Bupropion HCl 450 mg 04/28/22 09:00 04/30/22 08:03 Bupropion Hcl Xl (24 Hr) 150 Mg Tabcr PO 450 mg QAM CHARY Administration Carisoprodol 350 mg 04/30/22 06:53 Carisoprodol (*Crx) 350 Mg Tablet PO TID PRN Pain Diazepam 5 mg 04/29/22 10:35 Diazepam (*Crx) 5 Mg Tablet PO Q12H PRN Muscle Spasm Diphenhydramine HCl 25 mg 04/27/22 16:15 04/27/22 21:28 Diphenhydramine Hcl Inj 50 Mg/Ml Vial IV PUSH 25 mg Q6H PRN Administration Itching Enoxaparin Sodium 40 mg 04/28/22 09:00 04/30/22 08:00 Enoxaparin 40 Mg/0.4 Ml Syringe SUB-Q 40 mg DAILY [facility] Administration Hydroxychloroquine Sulfate 400 mg 04/28/22 09:00 04/30/22 08:03 Hydroxychloroquine Sulfate 200 Mg Tablet PO 400 mg DAILY [facility] Administration Ketorolac Tromethamine 15 mg 04/28/22 18:00 04/30/22 05:01 Ketorolac 15 Mg/Ml Vial (*Bkc) IV PUSH 15 mg Q6HR CHARY Administration Miscellaneous Information 1 each 04/27/22 16:35 Nurtec Odt Nonformulary. Can Patient Use From Home? XX 05/27/22 16:34 [facility] Miscellaneous Information 0 each 04/30/22 00:01 Carisoprodol Duplicate Prn Indication Of Pain. Please Specify What Pain XX 05/30/22 00:00 [facility] Morphine Sulfate 2 mg 04/27/22 15:03 04/28/22 08:34 Morphine Sulfate (*Crx) 2 Mg/Ml Inj IV PUSH 2 mg Q2H PRN Administration Pain Rated 4-6 Morphine Sulfate 4 mg 04/27/22 16:15 0
[2022-04-30 12:00] VITALS: BP 130/80; PULSE 60; RESP 16; TEMP 35.7; O2SAT 96
[2022-04-30] MEDS: HYDROcodone/acetaminophen (*CRX) 5-325 MG TABLET 1 TAB PO (14:27)
--- NOTE | 2022-05-01 09:47 | PM.DS ---
DS: Admitting Diagnosis Discharge Date 04/30/22 Admitting Diagnosis Recurrent, incarcerated incisional hernia DS: Discharge Diagnosis Discharge Diagnosis (1) Recurrent incisional hernia with incarceration: Code(s): K43.0 - Incisional hernia with obstruction, without gangrene Status: Acute Assessment and Plan: status post robotic assisted repair, pain much better controlled now, continue routine postoperative care and light activity restrictions, home with p.o. analgesia and Colace, follow-up 2 weeks (2) Lupus: Code(s): M32.9 - Systemic lupus erythematosus, unspecified Status: Acute Assessment and Plan: okay to resume home medications at this time, follow-up with PCP DS: Summary Hospital Course Reason for hospitalization: recurrent, incarcerated incisional hernia Hospital Course: The patient old female with a history of lupus presenting with a recurrent, incarcerated incisional hernia with noted small bowel within the hernia. The patient was quite symptomatic and decision was made to proceed urgently bring her to the operating room for repair. The patient underwent a robotic assisted repair of this hernia along with extensive lysis of adhesions on 04/27, please see full operative report for details of that procedure. Postoperatively, the patient was complaining of a significant amount of incisional pain so she was admitted to the surgical floor for pain control. Over the next few days in the hospital, the patient's incisional pain slowly improved although she did require IV analgesia. The patient also complained of nausea and her diet was slowly advanced given this. On postoperative day 3. , the patient was able to get off IV analgesia and her pain was well controlled with p.o. analgesia. Her nausea had largely resolved and she was able to tolerate a regular diet without issue. The patient was also up and ambulating without difficulty. Given these findings, the patient was discharged home with follow-up in 2 weeks. She is to continue routine postoperative care, including light activity restrictions. She will be sent home with [place] and Colace. Status at Discharge Functional status at discharge: independent ambulation Overall status at discharge: patient is progressing back to baseline Time Spent with Patient Time attestation: Total time spent providing and/or coordinating discharge services: Time spent: Less than 30 minutes Exam Const: General: cooperative, comfortable and no acute distress Chest: Chest palpation & inspection: normal inspection of the chest Resp: Auscultation: clear to auscultation bilaterally Cardio: Rate: regular rate Rhythm: regular rhythm GI: Inspection: normal to inspection, non-distended and incision GI Palp: Yes abdominal tenderness, Yes Soft to palpation, Yes Tenderness to palpation present (GI), No Guarding due to palpation present (GI) and No Rigid due to palpation Discharge Plan Discharge Attending physician on discharge: January Donohue Discharging Clinician: January Donohue Anticipated Discharge Date/Time: 04/30/22 15:46 Patient Disposition: Home, Self-Care Activity: may shower and other - see discharge instructions Diet: regular Wound Care Instructions: incision open to air Discharge Instructions: DISCHARGE INSTRUCTION SHEET FOR HERNIA, GALLBLADDER AND APPENDIX SURGERIES DR. DONOHUE 1. May shower in 24 hours, no soaking in bath x 2weeks. 2. Call office for: Wound increasingly painful or bleeding Vomiting Fever of greater than 101 degrees 3. If no bowel movement for three days, take 1 oz. (30 ml) Milk of Magnesia or MiraLax 17g 1 to 2 times daily. 4. No heavy lifting > 10-15 pounds x 6 weeks for hernia repairs and 2 weeks for laparoscopic cholecystectomy or appendectomy. 5. No driving for 3 days or while taking narcotic pain medications. 6. Ice to surgical site for 48 hours (30 min on, then 30 min off).
== END 2022-04-30 17:11 | disposition home or self-care (01) ==
LOC: ANH3MEDSUR 15:56
PROVIDERS: Admitting Provider Surgery; PCP Internal Medicine; Visit Provider Surgery
PROC: (CPT 49615; principal; 2022-04-27 07:30)
DX: K43.0 Incisional hernia with obstruction, without gangrene (principal); K66.0 Peritoneal adhesions (postprocedural) (postinfection); M32.9 Systemic lupus erythematosus, unspecified
CPT/HCPCS: 49615; 36415; 80048; 85027; A9270; C1781; G0378; J0690; J1100; J1170; J1200; J1650; J1885; J2250; J2270; J2405; J2704; J2710; J3010; J7030; J7120